=== PATIENT | male | born 1950 | race Caucasian/White ===

== ENCOUNTER → 2017-04-07 | Day surgery (SDC) | payer OTHER ==
[~2017-04-07] MED LIST: BUPIVACAINE HCL 0.5% 10ML MPF VIAL INJ ONE; CEFAZOLIN SOD 1 GM VIAL ONE; DEXAMETHASONE SOD PHOS INJ 4 MG/ML VIAL ONE; FENTANYL CITRATE/PF 100MCG/2 ML INJ ONE; KETOROLAC TROMETHAMINE 30 MG/ML VIAL ONE; LIDOCAINE HCL 2% LOCAL INJ 5 ML SDV VIAL INJ ONE; LISINOPRIL10 MG PO; MIDAZOLAM HCL 2 MG/2 ML VIAL ONE; ONDANSETRON HCL INJ 2 MG/ML VIAL ONE; PROPOFOL IV EMULSION 10 MG/ML 20 ML VIAL ONE; SEVOFLURANE INHAL SOLN 250 ML PEN BTL ONE
--- NOTE | 2017-04-07 13:26 | Operative Report ---
DATE OF PROCEDURE: April 07, 2017 PREOPERATIVE DIAGNOSIS: 1. Right wrist ganglion cyst. 2. Left ring finger cyst distal interphalangeal joint. POSTOPERATIVE DIAGNOSES: 1. Right wrist ganglion cyst, intratendinous. 2. Left ring finger cyst distal interphalangeal joint. 3. Osteophyte left ring finger distal interphalangeal joint. PROCEDURE PERFORMED: 1. Excision right wrist intratendinous ganglion cyst. 2. Excision of cyst left ring finger distal interphalangeal joint. 3. Arthrotomy with removal of osteophyte left ring finger distal interphalangeal joint. ANESTHESIA: General. HISTORY: The patient is a 66-year-old male who has symptomatic cysts on the dorsal aspect of the right wrist and at the DIP joint of the left ring finger. The risks, benefits and alternatives of treatment were discussed with the patient, and he is prepared to undergo the procedures outlined. DETAILS OF PROCEDURE: Patient was marked preoperatively in the holding area. He was brought to the operating theater, and after the induction of adequate general anesthesia, he was prepped and draped in a supine position. A time out was performed. The procedure was begun by marking out a transverse incision over the prominence of the cyst on the dorsal aspect of the right wrist. The right upper extremity was exsanguinated, and a tourniquet was inflated to a pressure of 250 mmHg. The incision was made through the skin and subcutaneous tissues. All venous tributaries were controlled with the bipolar cautery. Just distal to the extensor retinaculum, the extensor tendons were bluntly retracted, and then a cyst was densely adherent to the extensor tendon of the right ring finger. The cyst was excised sharply off of the extensor tendon, taking care to protect and preserve the extensor tendon. The cyst was removed in its entirety. The wound was irrigated, and the wound was then closed with 5-0 nylon in interrupted horizontal mattress fashion. A Marcaine was performed at the operative site. Tourniquet was deflated. All the fingers pinked up nicely. The wound was noted to be hemostatic. A sterile bulking conforming bandage was applied. A Tourni-Cot was placed around the tip to the base of the left ring finger. A curvilinear incision was marked out about the ulnar aspect of the DIP joint. The incision was made through the skin and subcutaneous tissues. Venous tributaries were controlled with the bipolar cautery. A cystic structure was encountered, emanating from the ulnar side of the extensor tendon mechanism. This was traced to the DIP joint and was removed in its entirety. There was a large osteophyte at the level of the DIP joint, and using a scalpel the joint capsule was incised and then the periosteum was removed from the osteophyte. Using a rongeur, the osteophyte was removed down to [place] bone. At this point, the joint was irrigated and closed. The skin was closed with 5-0 nylon in interrupted horizontal mattress fashion. Tourni-Cot was removed. The finger pinked up nicely. A digital block with 3 to 4 mL of 0.5% plain Marcaine was done at the base of the ring finger. A sterile bulking conforming bandage was applied. Patient tolerated the procedure well and was brought to the recovery room in satisfactory condition and discharged with a postoperative instruction sheet as well as a followup appointment. Job#: [id number] [email or web address]
== END | disposition home or self-care (01) ==
LOC: OR 06:31
PROVIDERS: ATTEND Plastic Surgery
DX: M67.431 Ganglion, right wrist (principal); M67.442 Ganglion, left hand; M25.742 Osteophyte, left hand; G47.33 Obstructive sleep apnea (adult) (pediatric); I10 Essential (primary) hypertension; Z01.810 Encounter for preprocedural cardiovascular examination; Z86.19 Personal history of other infectious and parasitic diseases
CPT/HCPCS: 25111; 26160; 93005; J0690; J1100; J1885; J2001; J2250; J2405